=== PATIENT | female | born 1945 | race Caucasian/White ===

== ENCOUNTER → 2018-04-10 | Outpatient (CLI) | payer MEDICARE ==
--- NOTE | 2018-04-10 18:25 | US ---
EXAMINATION TYPE: US groin LT DATE OF EXAM: 04/10/2018 COMPARISON: NONE CLINICAL HISTORY: Left Groin Pain R10.12. Intermittent left groin pain x couple months Left groin at patient's area of concern: appears wnl at this time Right groin for comparison: appears wnl at this time IMPRESSION: No evidence of a hernia. No solid or cystic mass identified.
== END | disposition home or self-care (01) ==
LOC: RADUSWWP 16:12
PROVIDERS: ATTEND Family Medicine
DX: R10.32 Left lower quadrant pain (principal)

== ENCOUNTER → 2018-07-29 | Outpatient (CLI) | payer MEDICARE ==
--- NOTE | 2018-07-30 08:52 | MM ---
Reason for exam: screening (asymptomatic). Last mammogram was performed 1 year ago. History: Patient is postmenopausal. Family history of breast cancer in aunt at age 70. Excisional biopsy of the left breast. 2 excisional biopsies of the right breast. Took hormonal contraceptives for 1 year. Physical Findings: A clinical breast exam by your physician is recommended on an annual basis and results should be correlated with mammographic findings. MG 3D Screening Mammo W/Cad Bilateral CC and MLO view(s) were taken. Prior study comparison: July 25, 2017, bilateral MG 3d screening mammo w/cad. July 24, 2016, bilateral MG 3d screening mammo w/cad. The breast tissue is heterogeneously dense. This may lower the sensitivity of mammography. There are benign appearing round and dystrophic calcifications bilaterally, greater in the right breast. There is no discrete abnormality. ASSESSMENT: Benign, BI-RAD 2 RECOMMENDATION: Routine screening mammogram of both breasts in 1 year.
== END | disposition home or self-care (01) ==
LOC: RADMAMWWP 10:38
PROVIDERS: ATTEND Obstetrics & Gynecology
DX: Z12.31 Encounter for screening mammogram for malignant neoplasm of breast (principal); Z80.3 Family history of malignant neoplasm of breast
CPT/HCPCS: 77063; 77067

== ENCOUNTER → 2019-07-30 | Outpatient (CLI) | payer MEDICARE ==
--- NOTE | 2019-07-31 11:07 | MM ---
Reason for exam: screening (asymptomatic). Last mammogram was performed 1 year ago. History: Patient is postmenopausal. Family history of breast cancer in aunt at age 70. Excisional biopsy of the left breast. 2 excisional biopsies of the right breast. Took hormonal contraceptives for 1 year. Physical Findings: A clinical breast exam by your physician is recommended on an annual basis and results should be correlated with mammographic findings. MG 3D Screening Mammo W/Cad Bilateral CC and MLO view(s) were taken. Prior study comparison: July 29, 2018, bilateral MG 3d screening mammo w/cad. July 25, 2017, bilateral MG 3d screening mammo w/cad. The breast tissue is heterogeneously dense. This may lower the sensitivity of mammography. There is an obscured 5mm mass in the right upper outer quasdrant at middle depth 4.5cm from nipple. Benign appearing bilateral calcifications. No suspicious abnormality on the left breast. ASSESSMENT: Incomplete: need additional imaging evaluation, BI-RAD 0 RECOMMENDATION: Special view mammogram of the right breast. If lesion persists on supplemental views, image directed ultrasound is recommended. [facility] will attempt to contact patient to return for supplemental views and ultrasound if indicated.
== END | disposition home or self-care (01) ==
LOC: RADMAMWWP 10:21
PROVIDERS: ATTEND Obstetrics & Gynecology
DX: Z12.31 Encounter for screening mammogram for malignant neoplasm of breast (principal); Z80.3 Family history of malignant neoplasm of breast
CPT/HCPCS: 77063; 77067

== ENCOUNTER → 2019-08-10 | Outpatient (CLI) | payer MEDICARE ==
--- NOTE | 2019-08-12 15:00 | MM ---
Reason for exam: additional evaluation requested from abnormal screening. Last mammogram was performed less than 1 month ago. History: Patient is postmenopausal. Family history of breast cancer in aunt at age 70. Excisional biopsy of the left breast. 2 excisional biopsies of the right breast. Took hormonal contraceptives for 1 year. Physical Findings: Nurse did not find any significant physical abnormalities on exam. MG 3D Work Up W/Cad RT Spot compression CC, spot compression MLO, and LM view(s) were taken of the right breast. Prior study comparison: July 30, 2019, bilateral MG 3d screening mammo w/cad. July 29, 2018, bilateral MG 3d screening mammo w/cad. The breast tissue is heterogeneously dense. This may lower the sensitivity of mammography. The questioned upper outer quadrant focal asymmetry disperses on additional views. These results were verbally communicated with the patient and result sheet given to the patient on 08/10/19. ASSESSMENT: Negative, BI-RAD 1 RECOMMENDATION: Return to routine screening mammogram schedule for both breasts.
== END | disposition home or self-care (01) ==
LOC: RADMAMWWP 13:41
PROVIDERS: ATTEND Obstetrics & Gynecology
DX: R92.8 Other abnormal and inconclusive findings on diagnostic imaging of breast (principal)
CPT/HCPCS: 77065; G0279; 77061

== ENCOUNTER → 2020-08-03 | Outpatient (CLI) | payer MEDICARE ==
--- NOTE | 2020-08-04 11:20 | MM ---
Reason for exam: screening (asymptomatic). Last mammogram was performed 1 year ago. History: Patient is postmenopausal. Family history of breast cancer in aunt at age 70. Excisional biopsy of the left breast. 2 excisional biopsies of the right breast. Took hormonal contraceptives for 1 year. Physical Findings: A clinical breast exam by your physician is recommended on an annual basis and results should be correlated with mammographic findings. MG 3D Screening Mammo W/Cad Bilateral CC and MLO view(s) were taken. XCCL view(s) were taken of the left breast. Prior study comparison: August 10, 2019, right breast MG 3d work up w/cad RT. July 30, 2019, bilateral MG 3d screening mammo w/cad. There are scattered fibroglandular densities. No significant changes when compared with prior studies. ASSESSMENT: Benign, BI-RAD 2 RECOMMENDATION: Routine screening mammogram of both breasts in 1 year.
== END | disposition home or self-care (01) ==
LOC: RADMAMWWP 10:48
PROVIDERS: ATTEND Obstetrics & Gynecology
DX: Z12.31 Encounter for screening mammogram for malignant neoplasm of breast (principal); Z80.3 Family history of malignant neoplasm of breast
CPT/HCPCS: 77063; 77067

== ENCOUNTER → 2021-08-15 | Outpatient (CLI) | payer MEDICARE ==
--- NOTE | 2021-08-16 10:32 | MM ---
Reason for exam: screening (asymptomatic). Last mammogram was performed 1 year ago. History: Patient is postmenopausal. Family history of breast cancer in aunt at age 70. Excisional biopsy of the left breast. 2 excisional biopsies of the right breast. Took hormonal contraceptives for 1 year. Physical Findings: A clinical breast exam by your physician is recommended on an annual basis and results should be correlated with mammographic findings. MG 3D Screening Mammo W/Cad Bilateral CC and MLO view(s) were taken. Prior study comparison: August 03, 2020, bilateral MG 3d screening mammo w/cad. August 10, 2019, right breast MG 3d work up w/cad RT. The breast tissue is heterogeneously dense. This may lower the sensitivity of mammography. Stable calcifications. There is no discrete abnormality. No significant changes when compared with prior studies. ASSESSMENT: Benign, BI-RAD 2 RECOMMENDATION: Routine screening mammogram of both breasts in 1 year.
== END | disposition home or self-care (01) ==
LOC: RADMAMWWP 10:52
PROVIDERS: ATTEND Obstetrics & Gynecology
DX: Z12.31 Encounter for screening mammogram for malignant neoplasm of breast (principal); Z80.3 Family history of malignant neoplasm of breast
CPT/HCPCS: 77063; 77067

== ENCOUNTER → 2023-01-09 | Outpatient (CLI) | payer MEDICARE ==
--- NOTE | 2023-01-09 11:43 | MM ---
Reason for Exam: Screening (asymptomatic). Last mammogram was performed 1 year(s) and 5 month(s) ago. Patient History: Menarche at age 12. First Full-Term at age 24. Postmenopausal. Patient used Hormonal Contraceptives for 1 year. Excisional Biopsy on the Right side. Excisional Biopsy on the Right side. Excisional Biopsy on the Left side. Maternal aunt had breast cancer, age 70. Risk Values: Patricia 5 year model risk: 2.6%. NCI Lifetime model risk: 5.6%. Prior Study Comparison: 08/10/2019 Right Diagnostic Mammogram, [facility]. 08/03/2020 Bilateral Screening Mammogram, [facility]. 08/15/2021 Bilateral Screening Mammogram, [facility]. Tissue Density: There are scattered fibroglandular densities. Findings: Analyzed By CAD. There is no suspicious group of microcalcifications or new suspicious mass in either breast. Stable focal asymmetry within the upper outer right breast middle depth. Overall Assessment: Benign, BI-RAD 2 Management: Screening Mammogram of both breasts in 1 year. A clinical breast exam by your physician is recommended on an annual basis and results should be correlated with mammographic findings. Electronically signed and approved by: Fili Melton D.O. Radiologis
== END | disposition home or self-care (01) ==
LOC: RADMAMWWP 10:18
PROVIDERS: ATTEND Obstetrics & Gynecology
DX: Z12.31 Encounter for screening mammogram for malignant neoplasm of breast (principal); Z80.3 Family history of malignant neoplasm of breast; Z78.0 Asymptomatic menopausal state
CPT/HCPCS: 77063; 77067

== ENCOUNTER → 2024-01-28 | Outpatient (CLI) | payer MEDICARE ==
[2024-01-28 13:41] VITALS: BP 136/80; PULSE 69; RESP 16; TEMP 97.9
--- NOTE | 2024-01-28 13:58 | P.HPOB ---
History of Present Illness H&P Date: 01/28/24 Chief Complaint: The patient is here for her routine gynecologic exam and ma mmogram. This is a 78-year-old with an LMP of 2005. Patient is here to establish with this office. It has been about 2 to 3 years since her last pelvic exam with Dr. Ceballos. She is without gynecologic complaints and denies any postmenopausal bleeding. She states she has been seen by the doctors at [facility] for many years and has had regular Pap smears without Pap smear problems. She was told by Dr. Ceballos that Pap smears can be discontinued. Review of Systems The patient's weight has been stable over the last year. She denies respiratory, cardiac, or G.I. problems. 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 History of Any Multi-Drug Resistant Organisms: None Reported Past Surgical History: Appendectomy, Breast Surgery, Joint Replacement, Orthopedic Surgery Additional Past Surgical History / Comment(s): BENIGN breast biopsies, RIGHT KNEE TOTAL REPLACEMENT. Colonoscopy. Past Anesthesia/Blood Transfusion Reactions: No Reported Reaction Past Psychological History: No Psychological Hx Reported Smoking Status: Never smoker Past Alcohol Use History: Occasional (3 drinks per week.) Past Drug Use History: None Reported Additional History: She has been since 1968 and is sexually active. 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 - Past Family History Mother Family Medical History: Hypertension, Renal Disease Additional Family Medical History / Comment(s): . Maternal aunt had breast cancer. Father Additional Family Medical History / Comment(s): following an accident. Brother(s) Family Medical History: Hypertension Sister(s) Family Medical History: CVA/TIA, Hypertension Medications and Allergies Home Medications Medication Instructions Recorded Confirmed Type Atorvastatin [Lipitor] 20 mg PO DAILY 01/28/24 01/28/24 History Calcium Carbonate/Vitamin D3 1 cap PO DAILY 01/28/24 01/28/24 History [Calcium 600 mg-D3 10 Mcg (400 Iu)] Collagen/Biotin/Ascorbic Acid 1 cap PO DAILY 01/28/24 01/28/24 History [Collagen 1500 Plus C Capsule] Felodipine [Felodipine ER] 2.5 mg PO DAILY 01/28/24 01/28/24 History Multivitamin [Multivitamins Adult 1 cap PO DAILY 01/28/24 01/28/24 History Gummies] Valsartan/Hydrochlorothiazide 1 tab PO DAILY 01/28/24 01/28/24 History [Valsartan-Hctz 80-12.5 mg Tab] Allergies Allergy/AdvReac Type Severity Reaction Status Date / Time No Known Allergies Allergy Unverified 01/28/24 12:49 Exam Vital Signs Temp Pulse Resp BP Pulse Ox 01/28/24 12:52 97.9 F 69 16 136/80 97 Intake and Output 01/27/24 01/28/24 01/28/24 22:59 06:59 14:59 Other: Weight 70.307 kg Height 5 foot 1 inch, weight 155 pounds, BMI 29.3. This is a well-developed well-nourished white female who is alert and oriented times 3 in no acute distress. HEENT: Within normal limits. NECK: Supple without mass or thyromegaly. CHEST AND LUNGS: Clear to auscultation. HEART: Regular rate and rhythm. BREASTS: Are without mass or discharge. The left breast has an inverted nipple which the patient states she has had for many years. AXILLARY EXAM: Negative for adenopathy. BACK: Negative for CVA tenderness. ABDOMEN: Soft, nontender, without palpable masses. PELVIC EXAM: Normal external genitalia with mild to moderate atrophy. Cervix and vagina appear normal with mild to moderate atrophy. There is no unusual discharge. There is no evidence of prolapse. The uterus is midposition, nongravid size and nontender. There are no palpable adnexal masses or tenderness. RECTAL EXAM: Rectovaginal exam is negative for mass or tenderness and is negative for occult blood. EXTREMITIES: Nontender. IMPRESSION: 1. 78-year-old menopausal female with normal gynecologic exam. PLAN: 1. Pap smear was performed. The patient states Dr. Ceballos's office was supposed to have sent her records here. Will try to review them if they are available. The patient states she has had regular Pap smears for many years through different doctors at [facility] and she was told she can discontinue Pap smears by Dr. Ceballos. If today's Pap smear is negative we will plan on discontinuing Pap smears unless records are obtained and indicate otherwise. 2. Self breast awareness was discussed with the patient. We have also discussed symptoms associated with inflammatory breast cancer. 3. Screening mammogram will be done today. 4. Osteoporosis prevention was discussed. I have stressed the importance of adequate calcium, vitamin D and regular exercise. Recommended amounts of calcium and vitamin D were also discussed. She had a normal bone density test on 07/25/2017. I recommended that she have another bone density test and the order slip was given to the patient for this. 5. She was advised to return in one year for her annual well woman exam.
== END ==
LOC: WWCWWP 12:39
PROVIDERS: ATTEND Obstetrics & Gynecology
DX: Z01.419 Encounter for gynecological examination (general) (routine) without abnormal findings (principal); Z78.0 Asymptomatic menopausal state; Z80.3 Family history of malignant neoplasm of breast
CPT/HCPCS: 77063; 77067

== ENCOUNTER → 2024-02-14 | Outpatient (CLI) | payer MEDICARE ==
--- NOTE | 2024-02-19 12:22 | BD ---
EXAMINATION TYPE: Axial Bone Density DATE OF EXAM: 02/14/2024 CLINICAL HISTORY: 78 years old Female. ICD-10 CODE: Z78.0 POSTMENOPAUSAL STATE Height: 60.5" Weight: 151lbs FRAX RISK QUESTIONS: Alcohol (3 or more units per day): No Family History (Parent hip fracture): No Glucocorticoids (More than 3mos): No (Ex: prednisone, prednisolone, methylprednisolone, dexamethasone, and hydrocortisone). History of Fracture in Adulthood: No Secondary Osteoporosis: 1. Type 1 Diabetes: No 2. Hyperthyroidism: No 3. Menopause before 45: 60 4. Malnutrition: No 5. Chronic liver disease: No Rheumatoid Arthritis: No Current Tobacco Use: No RISK FACTORS HISTORY OF: Hip Fracture (Right/Left): No Spine Fracture: No History of Wrist Fracture: No Surgery to Spine/Hip(right/left)/Wrist (right/left): No MEDICATIONS: Thyroid Medications: No Osteoporosis Medications: No EXAM MEASUREMENTS: Bone mineral densitometry was performed using the [employer] System. Bone mineral density as measured about the Lumbar spine is: ----- L1-L4(G/cm2): 1.151 T Score Values are as follows: ----- L1: -1.5 ----- L2: -0.8 ----- L3: -0.8 ----- L4: 1.3 ----- L1-L4: -0.2 Z Score Values are as follows: ----- L1: 0.1 ----- L2: 0.9 ----- L3: 0.9 ----- L4: 3.0 ----- L1-L4: 1.4 Bone mineral density has: decreased -4.7% since study of: 07/25/2017 Bone mineral density about the R hip (g/cm2): 0.932 Bone mineral density about the L hip (g/cm2): 0.978 T Score values are as follows: -----R Neck: 0.4 -----L Neck: -0.5 -----R Total: -0.6 -----L Total: -0.2 Z Score values are as follows: -----R Neck: 2.3 -----L Neck: 1.4 -----R Total: 1.1 -----L Total: 1.5 Bone mineral density has: decreased -1.8% since study of: 07/25/2017 FRAX%s: The graph provided illustrates a 8.7% chance for a major osteoporotic fx and a 1.0% chance fo r the hips probability for fx in 10 years time. IMPRESSION: Normal (Values between +1 and -1 indicate normal bone mass). Consider repeating this study in 5 year s or sooner if there is some new clinical indication. NOTE: T-SCORE=SD OF THE YOUNG ADULT MEAN.
== END | disposition home or self-care (01) ==
LOC: RADBDWWP 13:05
PROVIDERS: ATTEND Obstetrics & Gynecology
DX: M85.88 Other specified disorders of bone density and structure, other site (principal); Z78.0 Asymptomatic menopausal state
CPT/HCPCS: 77080

== ENCOUNTER → 2025-02-10 | Outpatient (CLI) | payer MEDICARE ==
[2025-02-10 10:49] VITALS: BP 119/79; PULSE 67; RESP 16; TEMP 97.6
--- NOTE | 2025-02-10 11:30 | P.HPOB ---
History of Present Illness H&P Date: 02/10/25 Chief Complaint: The patient is here for her routine gynecologic exam and ma mmogram. This is a 79-year-old G2, P2 with an LMP of 2005. The patient is without gynecologic complaints and denies any postmenopausal bleeding. Review of Systems The patient's weight has been stable over the last year. She denies respiratory, cardiac, or G.I. problems. 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 History of Any Multi-Drug Resistant Organisms: None Reported Past Surgical History: Appendectomy, Breast Surgery, Joint Replacement, Orthopedic Surgery Additional Past Surgical History / Comment(s): BENIGN breast biopsies, RIGHT KNEE TOTAL REPLACEMENT. Colonoscopy. Past Anesthesia/Blood Transfusion Reactions: No Reported Reaction Past Psychological History: No Psychological Hx Reported Smoking Status: Never smoker Past Alcohol Use History: Occasional (2-3 drinks per week.) Past Drug Use History: None Reported Additional History: She has been since 1968 and is sexually active. 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 - Past Family History Mother Family Medical History: Hypertension, Renal Disease Additional Family Medical History / Comment(s): . Maternal aunt had breast cancer. Father Additional Family Medical History / Comment(s): following an accident. Brother(s) Family Medical History: Hypertension Sister(s) Family Medical History: CVA/TIA, Hypertension Medications and Allergies Home Medications Medication Instructions Recorded Confirmed Type Atorvastatin [Lipitor] 20 mg PO DAILY 01/28/24 02/10/25 History Calcium Carbonate/Vitamin D3 1 cap PO DAILY 01/28/24 02/10/25 History [Calcium 600 mg-D3 10 Mcg (400 Iu)] Collagen/Biotin/Ascorbic Acid 1 cap PO DAILY 01/28/24 02/10/25 History [Collagen 1500 Plus C Capsule] Felodipine [Felodipine ER] 2.5 mg PO DAILY 01/28/24 02/10/25 History Multivitamin [Multivitamins Adult 1 cap PO DAILY 01/28/24 02/10/25 History Gummies] Valsartan/Hydrochlorothiazide 1 tab PO DAILY 01/28/24 02/10/25 History [Valsartan-Hctz 80-12.5 mg Tab] Allergies Allergy/AdvReac Type Severity Reaction Status Date / Time No Known Allergies Allergy Unverified 02/10/25 10:41 Exam Vital Signs Temp Pulse Resp BP Pulse Ox 02/10/25 10:44 97.6 F 67 16 119/79 94 L Intake and Output 02/09/25 02/10/25 02/10/25 22:59 06:59 14:59 Other: Weight 70.76 kg Height 5 feet 0 inches, weight 156 pounds, BMI 30.5. This is a well-developed well-nourished white female who is alert and oriented times 3 in no acute distress. HEENT: Within normal limits. NECK: Supple without mass or thyromegaly. CHEST AND LUNGS: Clear to auscultation. HEART: Regular rate and rhythm. BREASTS: Are without mass or discharge. AXILLARY EXAM: Negative for adenopathy. BACK: Negative for CVA tenderness. ABDOMEN: Soft, nontender, without palpable masses. PELVIC EXAM: Normal external genitalia with mild to moderate atrophy. Cervix and vagina appear normal with mild atrophy. There is no unusual discharge. There is no evidence of prolapse. The uterus is midposition, nongravid size and nontender. There are no palpable adnexal masses or tenderness. RECTAL EXAM: Rectovaginal exam is negative for mass or tenderness and is negative for occult blood. EXTREMITIES: Nontender. IMPRESSION: 1. 79-year-old menopausal female with normal gynecologic exam. 2. History of focal osteopenia. PLAN: 1. Pap smears have been discontinued. 2. Self breast awareness was discussed with the patient. We have also discussed symptoms associated with inflammatory breast cancer. 3. Screening mammogram will be done today. 4. Osteoporosis prevention was discussed. I have stressed the importance of adequate calcium, vitamin D and regular exercise. Recommended amounts of calcium and vitamin D were also discussed. We will plan on repeating the bone density test in approximately 2 years. 5. She was advised to return in one year for her annual well woman exam.
--- NOTE | 2025-02-10 12:12 | MM ---
Reason for Exam: Screening (asymptomatic). Last screening mammogram was performed 12 month(s) ago. Patient History: Menarche at age 12. First Full-Term at age 24. Postmenopausal. Patient has history of breast feeding. Patient used Hormonal Contraceptives for 1 year. Excisional Biopsy on the Right side. Excisional Biopsy on the Right side. Excisional Biopsy on the Left side. Maternal aunt had breast cancer, age 70. Risk Values: Patricia 5 year model risk: 2.6%. NCI Lifetime model risk: 4.9%. Prior Study Comparison: 08/15/2021 Bilateral Screening Mammogram, [facility]. 01/09/2023 Bilateral MG 3D screening mammo w/cad, [facility]. 01/28/2024 Bilateral MG 3D screening mammo w/cad, [facility]. Tissue Density: There are scattered areas of fibroglandular density. Findings: Analyzed By CAD. Right breast: There is no suspicious group of microcalcifications or new suspicious mass. Benign-appearing calcifications right breast. Left breast: There is no suspicious group of microcalcifications or new suspicious mass. Benign-appearing calcifications left breast. Overall Assessment: Benign, BI-RAD 2 Management: Screening Mammogram of both breasts in [address] [facility] will attempt to contact patient to return for supplemental views and ultrasound if indicated. Patient should continue monthly self-breast exams. A clinical breast exam by your physician is recommended on an annual basis. This exam should not preclude additional follow-up of suspicious palpable abnormalities. Note on Patricia scores and lifetime risk: 1. A Patricia score greater than 3% is considered moderate risk. If this is the case, consider specialist referral to assess eligibility for a risk reducing agent. 2. If overall lifetime risk for the development of breast cancer is 20% or higher, the patient may qualify for future screening with alternating mammogram and breast MRI. [facility], , 02/10/2025 12:09 PM. Electronically signed and approved by: Sandro Leavitt DO
== END ==
LOC: WWCWWP 10:29
PROVIDERS: ATTEND Obstetrics & Gynecology
DX: Z01.419 Encounter for gynecological examination (general) (routine) without abnormal findings (principal); Z12.31 Encounter for screening mammogram for malignant neoplasm of breast; M85.80 Other specified disorders of bone density and structure, unspecified site; Z78.0 Asymptomatic menopausal state
CPT/HCPCS: 77063; 77067